=== PATIENT | female | born 1975 | race African-American/Black ===

== ENCOUNTER 2016-08-18 08:43 | Emergency (ER) | payer OTHER, BC ==
[~2016-08-18] VITALS: Ht 160 cm; Wt 108.4 kg
[2016-08-18 08:56] VITALS: BP 176/84
[2016-08-18] MEDS ORDERED: TRAM-29 PO (09:29)
[2016-08-18] MEDS ORDERED: METH-37 PO (09:29)
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
== END 2016-08-18 09:47 | disposition home or self-care (01) ==
LOC: ER 08:43
DX: R51 Headache (principal); M54.5 Low back pain; I10 Essential (primary) hypertension; Z98.51 Tubal ligation status; Z90.49 Acquired absence of other specified parts of digestive tract; Z98.890 Other specified postprocedural states; V89.2XXA Person injured in unspecified motor-vehicle accident, traffic, initial encounter; Y93.89 Activity, other specified; Y99.8 Other external cause status; Y92.488 Other paved roadways as the place of occurrence of the external cause
CPT/HCPCS: 99283